=== PATIENT | male | born 1995 | race Caucasian/White ===

== ENCOUNTER 2017-03-07 16:20 | Emergency (ER) | payer OTHER ==
[2017-03-07 18:00] LABS: BILIRUBIN NEGATIVE (NEGATIVE); BLOOD NEGATIVE Ery/uL (NEGATIVE); CLARITY CLEAR (CLEAR); COLOR YELLOW (YELLOW); GLUCOSE (U) NORMAL (NORMAL); KETONE (U) NEGATIVE (NEGATIVE); LEUKOCYTES NEGATIVE Leu/uL (NEGATIVE); NITRITE NEGATIVE (NEGATIVE); PROTEIN TRACE (LOW) mg/dL (NEGATIVE); SPECIFIC GRAVITY 1.015 (1.001-1.030); pH 7.5 (5.0-9.0)
[2017-03-07 18:04] LABS: BACTERIA TRACE; URINARY RBC RARE
== END 2017-03-07 19:15 | disposition home or self-care (01) ==
LOC: FER 16:20
PROVIDERS: Nurse Practitioner Family
DX: S39.011A Strain of muscle, fascia and tendon of abdomen, initial encounter (principal); F17.210 Nicotine dependence, cigarettes, uncomplicated; Z88.8 Allergy status to other drugs, medicaments and biological substances; X58.XXXA Exposure to other specified factors, initial encounter; Y93.89 Activity, other specified
CPT/HCPCS: 76870; 81001

== ENCOUNTER 2021-05-18 10:53 | Emergency (ER) | payer OTHER ==
[~2021-05-18 10:53] MED LIST: BACLOFEN 10MG T10 MG PO; MEDROL 4MG DOSEP4 MG PO; MOBIC15 MG PO; NAPROXEN500 MG PO; PERCOCET 5-3251 EACH PO; PRILOSEC20 MG PO; ZOFRAN4 MG PO
[2021-05-18 11:39] LABS: BILIRUBIN NEGATIVE (NEGATIVE); BLOOD NEGATIVE Ery/uL (NEGATIVE); CLARITY CLEAR (CLEAR); COLOR YELLOW (YELLOW); GLUCOSE (U) NORMAL (NORMAL); LEUKOCYTES NEGATIVE Leu/uL (NEGATIVE); NITRITE NEGATIVE (NEGATIVE); PROTEIN NEGATIVE (NEGATIVE); SPECIFIC GRAVITY 1.025 (1.001-1.030); UROBILINOGEN 0.2 mg/dL (0.2-1.0)
[2021-05-18] MEDS ORDERED: CYCLOBENZAPRINE10 MG PO (12:37)
[2021-05-18] MEDS ORDERED: MEDROL 4MG DOSEP4 MG PO (12:37)
[2021-05-19 22:09] LABS: CHLAMYDIA TRACHOMATIS, NAA Negative (Negative); NEISSERIA GONORRHOEAE, NAA Negative (Negative)
== END 2021-05-18 12:48 | disposition home or self-care (01) ==
LOC: FER 10:53
PROVIDERS: Emergency Medicine; Nurse Practitioner Family
DX: M54.41 Lumbago with sciatica, right side (principal); Z88.2 Allergy status to sulfonamides
CPT/HCPCS: 81003; 87491; 87591; 99283

== ENCOUNTER 2021-08-06 07:50 | Emergency (ER) | payer OTHER ==
[~2021-08-06] VITALS: Ht 170.2 cm; Wt 67.1 kg
[~2021-08-06 07:50] MED LIST changes: +CYCLOBENZAPRINE10 MG PO
[2021-08-06] MEDS ORDERED: CYCLOBENZAPRINE10 MG PO (09:35)
[2021-08-06] MEDS ORDERED: ETODOLAC ER500 MG PO (09:35)
[2021-08-06] MEDS ORDERED: PREDNISONE 20MG20 MG PO (09:35)
== END 2021-08-06 09:40 | disposition home or self-care (01) ==
LOC: FER 07:50
DX: M54.12 Radiculopathy, cervical region (principal); F17.290 Nicotine dependence, other tobacco product, uncomplicated; Z88.1 Allergy status to other antibiotic agents
CPT/HCPCS: 72040; J1885

== ENCOUNTER 2021-08-07 12:09 | Emergency (ER) | payer OTHER ==
[~2021-08-07 12:09] MED LIST changes: +ETODOLAC ER500 MG PO; +PREDNISONE 20MG20 MG PO
[2021-08-07 13:03] LABS: BASOPHIL 0.3 % (0-2); EOSINOPHIL 1.3 % (0-5); HCT 39.3 % (42.0-52.0); HGB 13.5 g/dl (13.2-18.0); MCH 32.1 pg (25.0-31.0); MCHC 34.4 g/dL (32.0-36.0); MCV 93.6 fL (78.0-100.0); MONOCYTE 4.9 % (0-12); MPV 9.2 fL (6.0-9.5); NEUTROPHIL 67.2 % (41-80); NRBC 0; PLT 232 K/uL (150-400); RDW 12.1 % (11.5-14.0); WBC 15.3 K/uL (4.0-10.5)
[2021-08-07 13:33] LABS: ALBUMIN 3.8 g/dL (3.4-5.0); BILIRUBIN - TOTAL 0.4 mg/dL (0.2-1.0); BUN/CREAT RATIO (CALC) 10.8 RATIO; CREATININE 0.93 mg/dL (0.67-1.17); TOTAL PROTEIN 6.8 g/dL (6.4-8.2)
[2021-08-07 14:22] LABS: LACTIC ACID 0.9 mmol/L (0.4-1.9)
[2021-08-07 14:38] LABS: BILIRUBIN NEGATIVE (NEGATIVE); BLOOD NEGATIVE Ery/uL (NEGATIVE); CLARITY CLEAR (CLEAR); COLOR YELLOW (YELLOW); GLUCOSE (U) NORMAL (NORMAL); LEUKOCYTES NEGATIVE Leu/uL (NEGATIVE); NITRITE NEGATIVE (NEGATIVE); PROTEIN NEGATIVE (NEGATIVE); SPECIFIC GRAVITY >=1.030 (1.001-1.030); UROBILINOGEN 0.2 mg/dL (0.2-1.0)
== END 2021-08-07 16:12 | disposition home or self-care (01) ==
LOC: FER 12:09
PROVIDERS: Nurse Practitioner Family
DX: R10.84 Generalized abdominal pain (principal); R19.7 Diarrhea, unspecified; F17.210 Nicotine dependence, cigarettes, uncomplicated; Z88.8 Allergy status to other drugs, medicaments and biological substances
CPT/HCPCS: 36415; 80053; 81003; 82150; 83605; 83690; 85025; 87045; 87046; 87449; J2405; J7030; Q9967

== ENCOUNTER 2021-10-19 09:08 | Emergency (ER) | payer OTHER ==
[2021-10-19] MEDS ORDERED: ROBAXIN750 MG PO (12:07)
[2021-10-19] MEDS ORDERED: MEDROL 4MG DOSEP4 MG PO (12:07)
== END 2021-10-19 12:46 | disposition home or self-care (01) ==
LOC: FER 09:08
DX: R07.81 Pleurodynia (principal); F17.290 Nicotine dependence, other tobacco product, uncomplicated; Z20.822 Contact with and (suspected) exposure to COVID-19; Z88.8 Allergy status to other drugs, medicaments and biological substances
CPT/HCPCS: 71045; U0002

== ENCOUNTER 2022-06-12 21:13 | Emergency (ER) | payer OTHER ==
[~2022-06-12 21:13] MED LIST changes: +ROBAXIN750 MG PO
[2022-06-12 21:52] LABS: BASOPHIL 0.4 % (0-2); EOSINOPHIL 0.5 % (0-5); HCT 42.7 % (42.0-52.0); HGB 15.1 g/dl (13.2-18.0); LYMPHOCYTE 29.7 % (15-48); MCHC 35.4 g/dL (32.0-36.0); MCV 90.5 fL (78.0-100.0); MPV 9.3 fL (6.0-9.5); NEUTROPHIL 63.2 % (41-80); NRBC 0; PLT 270 K/uL (150-400); RBC 4.72 M/uL (4.70-6.00); RDW 11.8 % (11.5-14.0); WBC 13.3 K/uL (4.0-10.5)
[2022-06-12 22:12] LABS: BUN/CREAT RATIO (CALC) 6.4 RATIO; CREATININE 0.94 mg/dL (0.67-1.17); POTASSIUM 3.3 mmol/L (3.5-5.1)
[2022-06-12 22:25] LABS: LACTIC ACID 2.1 mmol/L (0.4-1.9)
[2022-06-12 22:29] LABS: CORONAVIRUS 2019 SARS-COV-2 NEGATIVE (NEGATIVE); INFLUENZA A NAA NEGATIVE (NEGATIVE)
== END 2022-06-12 22:24 | disposition left against medical advice (07) ==
LOC: FER 21:13
PROVIDERS: Nurse Practitioner Family
DX: Z53.21 Procedure and treatment not carried out due to patient leaving prior to being seen by health care provider (principal); Z20.822 Contact with and (suspected) exposure to COVID-19; Z28.310 Unvaccinated for COVID-19
CPT/HCPCS: 36415; 71045; 80048; 83605; 84145; 85025; U0002

== ENCOUNTER 2022-06-23 13:53 | Emergency (ER) | payer OTHER ==
[2022-06-23 18:31] LABS: BASOPHIL 0.6 % (0-2); HCT 42.1 % (42.0-52.0); HGB 14.7 g/dl (13.2-18.0); LYMPHOCYTE 40.8 % (15-48); MCH 32.1 pg (25.0-31.0); MCHC 34.9 g/dL (32.0-36.0); MCV 91.9 fL (78.0-100.0); MONOCYTE 6.7 % (0-12); MPV 8.8 fL (6.0-9.5); NEUTROPHIL 50.7 % (41-80); NRBC 0; PLT 287 K/uL (150-400); RBC 4.58 M/uL (4.70-6.00); RDW 12.4 % (11.5-14.0); WBC 8.4 K/uL (4.0-10.5)
[2022-06-23 18:47] LABS: ALBUMIN 3.8 g/dL (3.4-5.0); BILIRUBIN - TOTAL 0.6 mg/dL (0.2-1.0); BUN/CREAT RATIO (CALC) 9.7 RATIO; CREATININE 0.93 mg/dL (0.67-1.17); GLOBULIN (CALCULATION) 2.9 g/dL; TOTAL PROTEIN 6.7 g/dL (6.4-8.2)
[2022-06-23 18:49] LABS: AMPHETAMINES NEGATIVE (NEGATIVE); BARBITURATES NEGATIVE (NEGATIVE); ECSTASY (MDMA) NEGATIVE (NEGATIVE); MARIJUANA (THC) POSITIVE (NEGATIVE); METHADONE NEGATIVE (NEGATIVE); OPIATES NEGATIVE (NEGATIVE); OXYCODONE POSITIVE (NEGATIVE)
[2022-06-23 19:00] LABS: BILIRUBIN NEGATIVE (NEGATIVE); BLOOD NEGATIVE Ery/uL (NEGATIVE); CLARITY CLEAR (CLEAR); COLOR YELLOW (YELLOW); GLUCOSE (U) NORMAL (NORMAL); LEUKOCYTES NEGATIVE Leu/uL (NEGATIVE); NITRITE NEGATIVE (NEGATIVE); PROTEIN NEGATIVE (NEGATIVE); SPECIFIC GRAVITY >=1.030 (1.001-1.030); UROBILINOGEN 0.2 mg/dL (0.2-1.0)
== END 2022-06-23 19:49 | disposition home or self-care (01) ==
LOC: FER 13:53
PROVIDERS: Emergency Medicine
DX: R53.1 Weakness (principal); Z88.1 Allergy status to other antibiotic agents; Z20.822 Contact with and (suspected) exposure to COVID-19; Z28.310 Unvaccinated for COVID-19
CPT/HCPCS: 36415; 80053; 80305; 81003; 85025; 99284; U0002